=== PATIENT | female | born 1975 | race Caucasian/White ===

== ENCOUNTER 2020-12-14 08:02 | Emergency (ER) | payer SELFPAY ==
--- NOTE | ~2020-12-14 | CT_ITS ---
EXAMINATION: CT ABDOMEN AND PELVIS WITH CONTRAST CLINICAL INFORMATION: Periumbilical pain. COMPARISON: None. TECHNIQUE: Multidetector volumetric images were obtained from the superior aspect of the liver through the pubic symphysis following administration 80 mL of Omnipaque 350 intravenous contrast. Sagittal and coronal reformatted images were obtained on the technologist's workstation. Oral contrast: No This CT examination was performed using dose optimization techniques as appropriate, variously including the following: *Automated exposure control *Adjustment of mA and/or kV according to patient size (this includes techniques or standardized protocols for targeted exams where dose is matched to indication/reason for exam; i.e. extremities or head) *Use of iterative reconstruction technique DLP: 320 mGy-cm. FINDINGS: LUNG BASES: The visualized lung bases are unremarkable. LIVER, GALLBLADDER, AND BILIARY TREE: The liver is normal in size, shape, and attenuation. No focal hepatic lesion or biliary ductal dilatation is present. The gallbladder has been surgically removed. PANCREAS: Unremarkable. SPLEEN: Unremarkable. ADRENAL GLANDS: Unremarkable. KIDNEYS AND URETERS: The kidneys are normal in size, shape, and attenuation. No hydronephrosis, hydroureter, or calculi seen. No perinephric stranding. BLADDER: Unremarkable. GASTROINTESTINAL TRACT: There is scattered stool and gas in the colon. There is nonspecific mild mural thickening and fat deposition seen throughout the colon except for a nonspecific finding. Similar findings of mild mural thickening and fat deposition seen in the distal ileum. The small bowel loops are normal caliber. Appendix is nonvisualized. ABDOMINAL WALL: No significant hernia is appreciated. LYMPH NODES: Normal. VASCULAR: Unremarkable. PELVIC VISCERA: The uterus is anteverted and appears unremarkable. No free fluid or free air seen. No abnormal-sized pelvic or inguinal lymph nodes seen. OSSEOUS STRUCTURES: No lytic or sclerotic process seen. CT/CT abdomen pelvis w con IMPRESSION: No acute intra-abdominal process seen. Especially, no abnormality seen in the periumbilical region to explain patient's pain. There is nonspecific mild mural thickening or fat deposition throughout the colon and the terminal ileum. The gallbladder has been surgically removed. The appendix is not seen.
[2020-12-14 08:05] VITALS: BP 140/80; PULSE 92; O2SAT 90
[2020-12-14 08:13] VITALS: BP 109/64; PULSE 73; RESP 18; TEMP 36.9; O2SAT 99; BMI 20.2
--- NOTE | 2020-12-14 08:15 | ECG_ITS ---
Test Reason : ABDOMINAL PAIN Blood Pressure : / mmHG Vent. Rate : 068 BPM Atrial Rate : 068 BPM P-R Int : 148 ms QRS Dur : 076 ms QT Int : 402 ms P-R-T Axes : 061 -23 099 degrees QTc Int : 427 ms Normal sinus rhythm Low voltage QRS Septal infarct , age undetermined T wave abnormality, consider lateral ischemia Abnormal ECG No previous ECGs available Referred By: Eva Reese Electronically Signed By:THERESA JARA MD
--- NOTE | 2020-12-14 08:19 | ED_ITS ---
HPI - Abdominal Pain General Chief Complaint: Abdominal Pain Stated Complaint: abd pain Time Seen by Provider: 12/14/20 08:03 Source: patient Mode of arrival: EMS Limitations: no limitations History of Present Illness HPI narrative: Patient comes to the emergency room complaining of periumbilical pain for couple of days. Patient states that she is known to have IBS, has been taking multiple doses of NSAIDs. Patient also complaining of vomiting, no diarrhea. Patient states that due to the abdominal pain, she has been unable to eat/drink. Reports weight loss. Also complaining of severe anxiety MD elicited complaint: abdominal pain Related Data Previous Rx's Medication Instructions Recorded prochlorperazine maleate 10 mg 10 mg PO Q6H PRN #14 tab 12/14/20 tablet (Compazine) Allergies Allergy/AdvReac Type Severity Reaction Status Date / Time No Known Allergies Allergy Verified 12/14/20 08:14 Review of Systems Review of Systems Constitutional : Complaining of recent weight loss, No Fever, No Chills, No Night Sweats, complaining of fatigue and generalized weakness ENT/Mouth : No Hearing loss, No Ear Pain, No Nasal Congestion, No Sinus Pain, No Hoarseness, No sore throat, No Rhinorrhea, No Swallowing Difficulty Eyes: No Eye Pain, No Swelling, No Redness, No Foreign Body, No Discharge, No Vision Changes Cardiovascular : No Chest Pain, No SOB, No Dyspnea on Exertion, No Orthopnea, No Edema, No Palpitations Respiratory : No Cough, No Sputum, No Wheezing, No Smoke Exposure, No Dyspnea Gastrointestinal : Complaining of nausea vomiting No Diarrhea, No Constipation, cleaning of periumbilical pain, No Hematochezia, No Melena Genitourinary : no irregular bleeding, No Dysuria, No Urinary Frequency, No Hematuria, No Urinary Incontinence, No Urgency, No Flank Pain, No Urinary Flow Changes, No Hesitancy Musculoskeletal : No joint pain, No Myalgias, No Joint Swelling Skin : No Skin Lesions, No rash Neuro : No Weakness, No Numbness, No Paresthesias, No Loss of Consciousness, No Dizziness, No Headache Psych : No Anxiety/Panic, No Depression, No SI/HI/AH/VH, No Social Issues, Heme/Lymph: No Bruising, No Bleeding,No Lymphadenopathy Endocrine : No Polyuria, No Polydipsia, No Temperature Intolerance Physical Exam Vital Signs: Vital Signs: Last Vital Signs Temp 98.4 F 12/14/20 08:13 Pulse 73 12/14/20 08:13 Resp 18 12/14/20 08:13 BP 109/64 12/14/20 08:13 Pulse Ox 99 12/14/20 08:13 Body Mass Index 20.2 Const: Other: Appearance: Alert. Oriented X3. No acute distress. Eyes: Pupils equal, round and reactive to light. ENT: Pharynx normal. Neck: Normal inspection. Neck supple. No lymph nodes noted. No crepitus CVS: Normal heart rate and rhythm. Pulses normal. Normal S1 and S2 Respiratory: No respiratory distress. Breath sounds normal. No Wheezing. No rales Abdomen: Soft, mild to moderate pain to palpation over the periumbilical area. No rigidity. No distention. good BS x4 Skin: Skin warm and dry. Normal skin color. Normal skin turgor. Extremities: No lower extremity edema. No lower extremity edema. No Lacerations. No Rash Neuro: Oriented X 3. No motor deficit. No sensory deficit. Moving all extermities. No slurred speech. Course Course Course Narrative: I discussed the labs and imaging with the patient, no acute findings. Overall the patient is feeling better. MDM - Abdominal Pain Lab Data Result diagrams: 12/14/20 08:41 12/14/20 08:41 Labs: Lab Results 12/14/20 12/14/20 12/14/20 Range/Units 08:39 08:41 08:41 WBC 8.4 (4.8-10.8) X10*3/uL RBC 4.28 (4.20-5.50) X10*6/uL Hgb 12.2 (12.0-16.0) g/dl Hct 36.8 L (37-47) % MCV 86.0 (80-98) fL MCH 28.5 (27.0-33.0) pg MCHC 33.2 (31.0-35.0) g/dl RDW 13.0 (11.0-16.0) % Plt Count 226 (160-400) X10*3/uL MPV 10.1 (9.4-12.3) fL Immature Gran % (Auto) 0.4 (0.0-0.4) % Neut % (Auto) 70.3 (45-73) % Lymph % (Auto) 22.6 (20-40) % Mobile % (Auto) 5.5 (2-11) % Eos % (Auto) 0.4 (0-4) % Baso % (Auto) 0.8 (0-2) % Lymph # (Auto) 1.9 (1.2-4.9) X10*3/uL Mobile # (Auto) 0.5 (0.1-1.2) X10*3/uL Eos # (Auto) 0.0 (0.0-0.4) X10*3/uL Baso # (Auto) 0.1 (0.0-0.2) X10*3/uL Abs Immat Gran (auto) 0.03 (0.00-0.03) X10*3/uL Absolute Neuts (auto) 5.9 (2.0-8.3) X10*3/uL Absolute Nucleated RBC 0.000 (0.0-0.012) X10*3/uL Nucleated RBC % (auto) 0.0 (0.0-0.2) /100WBC Sodium 141 (135-145) mmol/L Potassium 3.8 (3.3-5.1) mmol/L Chloride 107 (96-108) mmol/L Carbon Dioxide 25 (22-29) mmol/L Anion Gap 13 (12-20) BUN 14 (9-16) mg/dL Creatinine 0.89 (0.5-1.4) mg/dL Estim Creat Clear Calc 56.1 Estimated GFR > 60 Random Glucose 118 H (60-115) mg/dL Calcium 10.1 (8.4-10.2) mg/dL Magnesium 2.1 (1.6-2.6) mg/dL Total Bilirubin 0.6 (0.0-1.0) mg/dL Direct Bilirubin 0.3 (0.0-0.5) mg/dL AST 35 H (5-31) U/L ALT 56 H (0-31) U/L Alkaline Phosphatase 89 (39-117) U/L B-Natriuretic Peptide (<100) pg/mL Total Protein 7.2 (6.5-8.0) g/dL Albumin 4.4 (3.5-5.0) g/dL Lipase 20 (8-78) U/L Beta HCG, Quant < 2 mIU/mL Urine Color YELLOW Urine Appearance CLEAR Urine pH 6.0 (5.0-8.0) Ur Specific [place] 1.020 (1.005-1.025) Urine Protein NEG (NEG-TRACE) MG/DL Urine Glucose (UA) NEG (NEG) MG/DL Urine Ketones NEG (NEG) MG/DL Urine Blood 1+ H (NEG) Urine Nitrite NEG (NEG) Ur Leukocyte Esterase NEG (NEG) Urine RBC 0-2 (0) /HPF Urine WBC 0-2 (0-4) /HPF Ur Squamous Epith Cells 2+ /LPF Urine Bacteria TRACE /LPF Urine Mucus TRACE /LPF 12/14/20 Range/Units 08:41 WBC (4.8-10.8) X10*3/uL RBC (4.20-5.50) X10*6/uL Hgb (12.0-16.0) g/dl Hct (37-47) % MCV (80-98) fL MCH (27.0-33.0) pg MCHC (31.0-35.0) g/dl RDW (11.0-16.0) % Plt Count (160-400) X10*3/uL MPV (9.4-12.3) fL Immature Gran % (Auto) (0.0-0.4) % Neut % (Auto) (45-73) % Lymph % (Auto) (20-40) % Mobile % (Auto) (2-11) % Eos % (Auto) (0-4) % Baso % (Auto) (0-2) % Lymph # (Auto) (1.2-4.9) X10*3/uL Mobile # (Auto) (0.1-1.2) X10*3/uL Eos # (Auto) (0.0-0.4) X10*3/uL Baso # (Auto) (0.0-0.2) X10*3/uL Abs Immat Gran (auto) (0.00-0.03) X10*3/uL Absolute Neuts (auto) (2.0-8.3) X10*3/uL Absolute Nucleated RBC (0.0-0.012) X10*3/uL Nucleated RBC % (auto) (0.0-0.2) /100WBC Sodium (135-145) mmol/L Potassium (3.3-5.1) mmol/L Chloride (96-108) mmol/L Carbon Dioxide (22-29) mmol/L Anion Gap (12-20) BUN (9-16) mg/dL Creatinine (0.5-1.4) mg/dL Estim Creat Clear Calc Estimated GFR Random Glucose (60-115) mg/dL Calcium (8.4-10.2) mg/dL Magnesium (1.6-2.6) mg/dL Total Bilirubin (0.0-1.0) mg/dL Direct Bilirubin (0.0-0.5) mg/dL AST (5-31) U/L ALT (0-31) U/L Alkaline Phosphatase (39-117) U/L B-Natriuretic Peptide 172 H (<100) pg/mL Total Protein (6.5-8.0) g/dL Albumin (3.5-5.0) g/dL Lipase (8-78) U/L Beta HCG, Quant mIU/mL Urine Color Urine Appearance Urine pH (5.0-8.0) Ur Specific [place] (1.005-1.025) Urine Protein (NEG-TRACE) MG/DL Urine Glucose (UA) (NEG) MG/DL Urine Ketones (NEG) MG/DL Urine Blood (NEG) Urine Nitrite (NEG) Ur Leukocyte Esterase (NEG) Urine RBC (0) /HPF Urine WBC (0-4) /HPF Ur Squamous Epith Cells /LPF Urine Bacteria /LPF Urine Mucus /LPF ECG Data Attestation: I personally reviewed and interpreted this ECG as follows: (Normal sinus rhythm, nonspecific ST segment abnormalities, no acute STEMI, QTC 427) Discharge Plan Discharge Clinical Impression: Abdominal pain Qualifiers: Abdominal location: periumbilical Qualified Code(s): R10.33 - Periumbilical pain Patient Disposition: Home, Self-Care Instructions: Abdominal Pain (ED) Additional Instructions: Please follow-up with your primary care physician tomorrow. If you have any worsening or new symptoms, please return to the emergency room or call 911 Prescriptions: New prochlorperazine maleate [Compazine] 10 mg tablet 10 mg PO Q6H PRN (Reason: nausea and vomiting) Qty: 14 RF: 0 PMFSH Past Medical History Medical History Acute erythroid leukemia in remission Anxiety Gallbladder disease IBS (irritable bowel syndrome) Social History Social History Advance Directives: No Advance Directives Information Provided: No Patient : No
[2020-12-14 08:49] LABS: MANUAL DIFF FLAG NO
[2020-12-14 08:52] LABS: Basophils Absolute Auto 0.1 X10*3/uL (0.0-0.2); Basophils Percent Auto 0.8 % (0-2); Eosinophils Percent Auto 0.4 % (0-4); Hematocrit 36.8 % (37-47); Hemoglobin 12.2 g/dl (12.0-16.0); Imm Gran Abs Auto 0.03 X10*3/uL (0.00-0.03); Imm Gran Pct Auto 0.4 % (0.0-0.4); Lymphocytes Absolute Auto 1.9 X10*3/uL (1.2-4.9); Lymphocytes Percent Auto 22.6 % (20-40); Mean Corpuscular HGB Conc 33.2 g/dl (31.0-35.0); Mean Corpuscular Hemoglobin 28.5 pg (27.0-33.0); Mean Platelet Volume 10.1 fL (9.4-12.3); Monocytes Absolute Auto 0.5 X10*3/uL (0.1-1.2); Monocytes Percent Auto 5.5 % (2-11); Neutrophils Absolute Auto 5.9 X10*3/uL (2.0-8.3); Neutrophils Percent Auto 70.3 % (45-73); Platelet Count 226 X10*3/uL (160-400); Red Blood Count 4.28 X10*6/uL (4.20-5.50); White Blood Count 8.4 X10*3/uL (4.8-10.8)
[2020-12-14 08:54] LABS: Glucose Urine UA NEG (NEG); Leukocyte Esterase Urine NEG (NEG); Nitrite Urine NEG (NEG); UACC Culture Trigger NO; Urine Blood 1+ (NEG); Urine Ketones NEG (NEG); Urine Protein NEG (NEG-TRACE)
[2020-12-14 08:56] LABS: Appearance Urine CLEAR; Color Urine YELLOW
[2020-12-14 09:02] LABS: RBC Urine 0-2 /HPF (0); Squamous Epithelial Cell Urine 2+ /LPF; WBC Urine 0-2 /HPF (0-4)
[2020-12-14 09:03] LABS: Bacteria Urine TRACE /LPF; Mucus Urine TRACE /LPF
[2020-12-14 09:20] LABS: Alanine Aminotransferase 56 U/L (0-31); Albumin Level 4.4 g/dL (3.5-5.0); Alkaline Phosphatase 89 U/L (39-117); Anion Gap 13 (12-20); Aspartate Amino Transferase 35 U/L (5-31); Bilirubin Direct 0.3 mg/dL (0.0-0.5); Bilirubin Total 0.6 mg/dL (0.0-1.0); Blood Urea Nitrogen 14 mg/dL (9-16); Calcium 10.1 mg/dL (8.4-10.2); Carbon Dioxide 25 mmol/L (22-29); Chloride 107 mmol/L (96-108); Creatinine Clr Calc Pharmacy 56.1; Estimated Glomerular Filt Rate > 60; Glucose Random 118 mg/dL (60-115); Lipase 20 U/L (8-78); Magnesium 2.1 mg/dL (1.6-2.6); Potassium 3.8 mmol/L (3.3-5.1); Sodium 141 mmol/L (135-145); Total Protein 7.2 g/dL (6.5-8.0)
[2020-12-14 09:26] LABS: B Type Natriuretic Peptide 172 pg/mL (<100)
[2020-12-14 10:31] LABS: HCG Quantitative < 2 mIU/mL
[2020-12-14] MEDS: iohexoL 350 MG/ML 100 ML INFUS..BTL IV (10:47)
[2020-12-14] MEDS: 0.9 % Sodium Chloride 1,000 ML 999 ML IV (11:27)
== END 2020-12-14 12:59 | disposition home or self-care (01) ==
PROVIDERS: Emergency Provider Emergency Medicine
DX: R10.33 Periumbilical pain (principal); F41.9 Anxiety disorder, unspecified
CPT/HCPCS: 36415; 74177; 80048; 80076; 81001; 83690; 83735; 83880; 84702; 85025; 93005; 96360; 99283; 99284; Q9967

== ENCOUNTER 2023-10-07 07:58 | Day surgery (SDC) | payer OTHER, SELFPAY ==
[2023-10-03 12:17] VITALS: BMI 21.8
--- NOTE | 2023-10-06 08:53 | P.CONAN_ITS ---
Documented by User: Lisa Alvarado NP 10/06/23 08:53 HPI - Anesthesia Eval Consult details Narrative: 48yo F for Colonoscopy PMFSH Past Medical History Medical History (Updated 10/07/23 @ 08:15 by Jennifer Guadalupe RN) Afib Peripartum cardiomyopathy HLD (hyperlipidemia) Hemorrhoid Anal fistula GERD (gastroesophageal reflux disease) Gallbladder disease Anxiety IBS (irritable bowel syndrome) Acute erythroid leukemia in remission Surgical History Surgical History (Updated 11/27/22 @ 12:28 by Lisa Alvarado NP) S/P foot surgery, right History of dilatation and curettage Hx of cholecystectomy Hx of esophagogastroduodenoscopy Hx of colonoscopy Social History Social History Patient Tobacco Use Status: Never used Tobacco Are you DNR?: No Advance Directives: No Advance Directives Information Provided: Yes Recently lost weight without trying: No Nutrition Risks: No Nutritional Risk Meds Allergies Allergy/AdvReac Type Severity Reaction Status Date / Time nitrofurantoin Allergy Unknown Unknown Verified 11/27/22 12:24 [From Macrodantin] Seasonal Allergies Allergy Unknown Unknown Verified 11/27/22 12:24 Sulfa (Sulfonamide Allergy Unknown Unknown Verified 11/27/22 12:24 Antibiotics) Home Medications ?Medication ?Instructions ?Recorded ?Confirmed ?Last Taken ?Type escitalopram oxalate 5 mg tablet 5 mg PO DAILY 11/27/22 11/27/22 Unknown History famotidine 40 mg tablet 40 mg PO BID 11/27/22 11/27/22 Unknown History hydroxyzine HCl 25 mg tablet 25 - 50 mg PO BEDTIME PRN insomnia 11/27/22 11/27/22 Unknown History hyoscyamine sulfate 0.375 mg 0.375 mg PO BID 11/27/22 11/27/22 Unknown History tablet,extended release,12 hr loperamide 2 mg capsule 2 mg PO QID PRN Diarrhea 11/27/22 11/27/22 Unknown History lorazepam 1 mg tablet 1 mg PO BID PRN Anxiety 11/27/22 11/27/22 Unknown History ondansetron HCl 4 mg tablet 8 mg PO Q8H PRN nausea 11/27/22 11/27/22 Unknown History carvedilol 25 mg tablet 25 mg PO BID 10/07/23 10/07/23 10/07/23 History Exam Height,Weight and Vital Signs: Height 5 ft 1 in Weight 52.254 kg Assessment and Plan Assessment Anesthesia Assessment: Chart Reviewed Documented by User: Ricardo Carcamo MD 10/07/23 09:09 [facility] Past Medical History Medical History (Updated 10/07/23 @ 08:15 by Jennifer Guadalupe RN) Afib Peripartum cardiomyopathy HLD (hyperlipidemia) Hemorrhoid Anal fistula GERD (gastroesophageal reflux disease) Gallbladder disease Anxiety IBS (irritable bowel syndrome) Acute erythroid leukemia in remission Family History Family history of problems with anesthesia: No Surgical History Surgical History (Updated 11/27/22 @ 12:28 by Lisa Alvarado NP) S/P foot surgery, right History of dilatation and curettage Hx of cholecystectomy Hx of esophagogastroduodenoscopy Hx of colonoscopy History of Problems with Anesthesia: Yes (PONV) Social History Social History Patient Tobacco Use Status: Never used Tobacco Are you DNR?: No Advance Directives: No Advance Directives Information Provided: Yes Recently lost weight without trying: No Nutrition Risks: No Nutritional Risk Meds Allergies Allergy/AdvReac Type Severity Reaction Status Date / Time nitrofurantoin Allergy Unknown Unknown Verified 11/27/22 12:24 [From Macrodantin] Seasonal Allergies Allergy Unknown Unknown Verified 11/27/22 12:24 Sulfa (Sulfonamide Allergy Unknown Unknown Verified 11/27/22 12:24 Antibiotics) Home Medications ?Medication ?Instructions ?Recorded ?Confirmed ?Last Taken ?Type escitalopram oxalate 5 mg tablet 5 mg PO DAILY 11/27/22 11/27/22 Unknown History famotidine 40 mg tablet 40 mg PO BID 11/27/22 11/27/22 Unknown History hydroxyzine HCl 25 mg tablet 25 - 50 mg PO BEDTIME PRN insomnia 11/27/22 11/27/22 Unknown History hyoscyamine sulfate 0.375 mg 0.375 mg PO BID 11/27/22 11/27/22 Unknown History tablet,extended release,12 hr loperamide 2 mg capsule 2 mg PO QID PRN Diarrhea 11/27/22 11/27/22 Unknown History lorazepam 1 mg tablet 1 mg PO BID PRN Anxiety 11/27/22 11/27/22 Unknown History ondansetron HCl 4 mg tablet 8 mg PO Q8H PRN nausea 11/27/22 11/27/22 Unknown History carvedilol 25 mg tablet 25 mg PO BID 10/07/23 10/07/23 10/07/23 History Exam Airway Mallampati Class: I TM Dist: >3cm Neck ROM: Full Loose/Missing/Broken Teeth: No Heart: ok Lungs: ok Assessment and Plan Assessment Anesthesia Assessment: Anesthesia Plan Discussed Final Anesthetic Review Family History of Problems with Anesthesia: No History of Problems with Anesthesia: Yes (PONV) NPO: Yes ASA Class: II Final Preanesthetic Review: No Changes in Pt Med Stat, Meds/Allgs Chart Reviewe d, Consent Obtained/Reviewed and Anes Risks/Benef Reviewed Patient Risk: Low Procedure Risk: Low Anesthetic Plan Anesthetic Plan: MAC: and Agree w/ Assess. and Plan Disposition: Standard PACU
[2023-10-07 08:02] VITALS: BP 100/58; PULSE 66; RESP 18; TEMP 36.8; O2SAT 98; BMI 22.2
[2023-10-07] MEDS: Lactated Ringers 1,000 ML 100 ML IVCONT (08:27)
--- NOTE | 2023-10-07 08:47 | MHC.SHP ---
Pre-Procedural Eval Section A - 24 Hr Update-Section A only Date of Service: 10/07/23 Section B - Complete if H&P > 30 days Chief Complaint: screening Details of Present Illness: see H&P no chnages Relevant Family History (Specify if Yes): No Relevant Social History: None Present Medications: see Short Stay Collaborative assessment Medical History: No relevant PMH History of Previous Operations: No relevant previous surgery Allergies: Allergies Allergy/AdvReac Type Severity Reaction Status Date / Time nitrofurantoin Allergy Unknown Unknown Verified 11/27/22 12:24 [From Macrodantin] Seasonal Allergies Allergy Unknown Unknown Verified 11/27/22 12:24 Sulfa (Sulfonamide Allergy Unknown Unknown Verified 11/27/22 12:24 Antibiotics) Review of Systems Sugical H&P ROS: Negative: Constitution, Cardiovascular, Respiratory, Neurological, Psychiatric, Hem-Onc, Allergic/Immunologic, Gastrointestinal, Genitourinary, Musculoskeletal, Integumentary, Endocrine and Eyes/Ears/Nose/Throat Exam Surgical H&P Exam: Normal: HEENT, Normal: Heart, Normal: Lungs, Normal: Extremities, Normal: Abdomen, Normal: Skin and Normal: Neurological Plan Diagnosis/Plan: Unchanged I have reviewed the history and physical and performed a pertinent physical examination on my patient. No changes have occurred unless specified. Time Spent With Patient Time: Total time managing care of this patient today ____ minutes.
[2023-10-07 09:21] VITALS: BP 88/60; PULSE 61; RESP 18; TEMP 36.7; O2SAT 98
--- NOTE | 2023-10-07 09:29 | OP_ITS ---
DATE OF SERVICE: 10/07/2023 SURGEON: Albino Merino MD INDICATIONS: Colon cancer screening. PREOPERATIVE DIAGNOSIS: POSTOPERATIVE DIAGNOSIS: PROCEDURE PERFORMED: Colonoscopy to the terminal ileum with biopsy. ESTIMATED BLOOD LOSS: COMPLICATIONS: ANESTHESIA: Monitored anesthesia care. ASSISTANTS: SPECIMENS: DESCRIPTION OF PROCEDURE: A history and physical was performed. The risks and benefits of the procedure were explained to the patient and informed consent was obtained. The patient was placed in the left lateral decubitus position. A digital rectal exam was performed and was found to be normal. The Olympus pediatric video colonoscope was introduced into the rectum and advanced to the cecum. The cecum was identified by transillumination, palpation, and identification of the ileocecal valve. Examination was performed and the scope was removed. She tolerated the procedure well and was returned to the recovery area in stable condition. FINDINGS: The terminal ileum was examined and appeared normal. The visualized colonic mucosa was normal. The quality of the prep was good. No polyps were identified. Sigmoid biopsies were obtained to rule out microscopic or collagenous colitis because of the patient's symptoms. Retroflexed examination showed some small internal hemorrhoids and hypertrophic anal papillae. There were small external hemorrhoids as well. IMPRESSION: Normal colonoscopy. RECOMMENDATIONS: 1. Follow up the biopsy results. 2. Repeat colonoscopy for screening purposes is recommended in 10 years for average-risk individuals. MD SHEILA Maldonado/LIDIA / [id number]
[2023-10-07 09:36] VITALS: BP 93/63; PULSE 60; RESP 18; O2SAT 98
[2023-10-07 09:51] VITALS: BP 100/63; PULSE 61; RESP 18; O2SAT 98
[2023-10-07 10:06] VITALS: BP 100/72; PULSE 55; RESP 16; TEMP 36.7; O2SAT 100
== END 2023-10-07 10:30 | disposition home or self-care (01) ==
PROVIDERS: PCP Nurse Practitioner; Visit Provider Internal Medicine Gastroenterology
PROC: 0DJD8ZZ Inspection of Lower Intestinal Tract, Via Natural or Artificial Opening Endoscopic (ICD-10-PCS; CPT 45378; principal; 2023-10-07 09:10)
DX: Z12.11 Encounter for screening for malignant neoplasm of colon (principal); K64.4 Residual hemorrhoidal skin tags; K58.0 Irritable bowel syndrome with diarrhea; Z88.2 Allergy status to sulfonamides
CPT/HCPCS: 45380; 88305; J2704